=== PATIENT | female | born 1930 | race Caucasian/White ===

== ENCOUNTER 2019-09-29 14:48 | Observation (INO) ==
[2019-09-29] MEDS ORDERED: ONDANSETRON 4 MG/2 ML VIAL IV PRN (15:11)
[2019-09-29] MEDS ORDERED: DOCUSATE SODIUM 100 MG CAPSULE PO PRN (15:11)
[2019-09-29] MEDS ORDERED: ZALEPLON 5 MG CAPSULE PO PRN (15:11)
[2019-09-29] MEDS ORDERED: MAGNESIUM SULF RIDER 4 GM in PREMIX 1 EACH IV PRN (15:11)
[2019-09-29] MEDS ORDERED: MAGNESIUM SULF RIDER 2 GM in PREMIX 1 EACH IV PRN (15:11)
[2019-09-29] MEDS ORDERED: ACETAMINOPHEN 325 MG TABLET PO PRN (15:11)
[2019-09-29] MEDS ORDERED: MORPHINE 4 MG/1 ML VIAL IV PRN (15:11)
[2019-09-29] MEDS ORDERED: diphenhydrAMINE CAP 25 MG CAPSULE PO PRN (15:20)
[2019-09-29] MEDS ORDERED: MAGNESIUM HYDROXIDE SUSP 30 ML UDCUP PO PRN (15:20)
[2019-09-29] MEDS: SODIUM CHLORIDE 0.45% 1,000 ML IV SCH (16:45)
[2019-09-29] MEDS: dilTIAZem Drip 125 MG/125 ML PREMIX IV SCH (16:46)
[2019-09-29] MEDS: RIVAROXABAN 15 MG TABLET PO SCH (17:35)
[2019-09-29 22:47] LABS: Apearance,Urine CLEAR (Clear); Bacteria,Urine Occasional /HPF (Few); Bilirubin,Urine Negative (Negative); Blood, Urine Negative (Negative); Glucose,Urine (UA) >=500 mg/dL (Negative); Ketones,Urine Negative (Negative); Nitrite,Urine Negative (Negative); Protein,Urine Negative; RBC,Urine 2 /HPF (0-4); Squamous Epithelial Cell,Urine Occasional /HPF (0-10); Urine Color Straw (Yellow); Urine Specific Gravity 1.027 (1.001-1.035); Urine Urobilinogen < 2.0 EU/DL (0.2-1.0); WBC,Urine 3 /HPF (0-6)
[2019-09-30] MEDS: SODIUM CHLORIDE 0.45% 1,000 ML IV SCH ×2 (01:02→07:10)
[2019-09-30] MEDS: LEVOTHYROXINE 75 MCG TABLET PO SCH (05:55)
[2019-09-30 06:00] LABS: Basophils % 0.4 % (0.0-0.8); Eosinophils # 0.1 10*3/uL (0.0-0.87); Eosinophils % 1.8 % (0.00-10.9); Hematocrit 30.8 VOL% (35.7-47.0); Hemoglobin 10.4 GM/DL (12.0-16.0); Immature Granulocytes % 0.4 %; Immature Granulocytes Absolute 0.02 #; Lymphocytes # 1.9 10*3/uL (1.4-4.0); Lymphocytes % 42.5 % (21.3-54.2); Mean Corpuscular HGB Conc 33.8 GM/DL (32-36); Mean Corpuscular Volume 93.9 FL (87-102); Mean Platelet Volume 12.5 FL (9.6-12.0); Monocytes % 32.8 % (1.7-12.7); Neutrophils % 22.1 % (38.7-73.9); Red Blood Count 3.28 MC/CUMM (3.8-5.5); Red Cell Distribution Width 13.2 % (9.3-17.3); White Blood Count 4.5 T/CUMM (4-12)
[2019-09-30 06:13] LABS: Platelet Count 89 T/CUMM (130-400)
[2019-09-30 06:30] LABS: Albumin 3.5 G/DL (3.4-5.0); Bilirubin,Total 0.4 MG/DL (0.2-1.0); Calcium 8.4 MG/DL (8.5-10.1); Thyroid Stimulating Hormone 10.9 uIU/ml (0.358-3.74); Total Protein 6.9 G/DL (6.4-8.3)
[2019-09-30 06:34] LABS: Eosinophils 4 % (0-10); Lymphocytes 53 % (20-55); Segmented Neutrophils 21 % (50-85); Total Cells Counted 100
[2019-09-30 06:35] LABS: Atypical Lymphocytes Few; Hypochromasia Slight; Microcytosis Slight; Ovalocytes Slight; Platelet Estimate Decreased
[2019-09-30] MEDS: dilTIAZem Drip 125 MG/125 ML PREMIX IV SCH ×2 (07:11→15:14)
[2019-09-30] MEDS: DILTIAZEM CD 120 MG CAPSULE PO SCH ×2 (08:40→21:55)
[2019-09-30] MEDS: PANTOPRAZOLE 40 MG TABLET PO SCH (08:40)
[2019-09-30] MEDS ORDERED: METOPROLOL SUCCINATE XL 25 MG TABLET PO SCH (09:00)
[2019-09-30] MEDS: RIVAROXABAN 15 MG TABLET PO SCH (17:05)
[2019-09-30] MEDS ORDERED: METOPROLOL TARTRATE 25 MG TABLET PO SCH (21:00)
[2019-10-01 04:36] LABS: Basophils % 0.4 % (0.0-0.8); Eosinophils # 0.1 10*3/uL (0.0-0.87); Eosinophils % 1.7 % (0.00-10.9); Hematocrit 32.4 VOL% (35.7-47.0); Immature Granulocytes % 0.7 %; Immature Granulocytes Absolute 0.04 #; Lymphocytes % 37.1 % (21.3-54.2); Mean Corpuscular Volume 93.6 FL (87-102); Mean Platelet Volume 12.1 FL (9.6-12.0); Neutrophils % 25.1 % (38.7-73.9); Red Blood Count 3.46 MC/CUMM (3.8-5.5); Red Cell Distribution Width 13.3 % (9.3-17.3); White Blood Count 5.3 T/CUMM (4-12)
[2019-10-01 04:52] LABS: Platelet Count 89 T/CUMM (130-400)
[2019-10-01 05:00] LABS: Lymphocytes 46 % (20-55); Segmented Neutrophils 24 % (50-85); Total Cells Counted 100
[2019-10-01 05:01] LABS: Platelet Estimate Decreased
[2019-10-01 05:02] LABS: Anisocytosis Slight; Macrocytosis Slight
[2019-10-01 05:04] LABS: Atypical Lymphocytes Few
[2019-10-01 05:06] LABS: Calcium 8.6 MG/DL (8.5-10.1); Osmolality,Calculated 286.5 MOS/KG (273-304)
[2019-10-01] MEDS: LEVOTHYROXINE 75 MCG TABLET PO SCH (05:36)
[2019-10-01] MEDS ORDERED: METOPROLOL SUCCINATE XL 50 MG TABLET PO SCH (09:00)
[2019-10-01] MEDS ORDERED: DILTIAZEM CD 240 MG CAPSULE PO SCH (09:00)
[2019-10-01] MEDS: PANTOPRAZOLE 40 MG TABLET PO SCH (10:14)
[2019-10-01 11:15] VITALS: BP 119/68
== END 2019-10-01 10:49 | disposition home or self-care (01) ==
LOC: N.TELES 15:10 → INTOOBSV 15:10
PROVIDERS: ADMIT Internal Medicine Cardiovascular Disease; ATTEND Internal Medicine Cardiovascular Disease